=== PATIENT | female | born 1985 | race Caucasian/White ===

== ENCOUNTER 2018-09-25 13:41 | Emergency (ER) | payer OTHER, SELFPAY ==
[2018-09-25 13:45] VITALS: BP 151/98; PULSE 90; RESP 16; TEMP 36.6; O2SAT 100; BMI 48.8
--- NOTE | 2018-09-25 13:48 | DI.RAD.S_ITS ---
PROCEDURE: XR TIBIA FIBULA RT 2V INDICATIONS: ankle swelling pain after rolling it TECHNIQUE: 2 views of the tibia and fibula were acquired. COMPARISON: None. FINDINGS: Bones: No fractures or dislocations. No suspicious bony lesions. Soft tissues: No suspicious soft tissue calcifications or masses. IMPRESSION: No acute fracture. No osseous lesion. If symptoms and/or clinical suspicion for pathology persist, further assessment with repeat, or advanced imaging (e.g., CT, MRI, or bone scan) may be helpful for further assessment. Dictated by: Trish Art M.D. on 09/25/2018 at 14:03 Approved by: Trish Art M.D. on 09/25/2018 at 14:03
--- NOTE | 2018-09-25 13:48 | DI.RAD.S_ITS ---
PROCEDURE: XR ANKLE LT MIN 3V INDICATIONS: ankle swelling pain after rolling it TECHNIQUE: 3 views of the ankle were acquired. COMPARISON: None. FINDINGS: Bones: Mildly displaced fracture of the distal tip of the lateral malleolus is present. Ankle mortise is normally aligned. No suspicious bony lesions. Soft tissues: No tibiotalar joint effusion. Achilles tendon appears normal. IMPRESSION: Mildly displaced fracture of distal fibula. Dictated by: Trish Art M.D. on 09/25/2018 at 14:03 Approved by: Trish Art M.D. on 09/25/2018 at 14:04
--- NOTE | 2018-09-25 13:48 | PC.NURSE ---
Pt refused ice at this time. States that it made it hurt more
[2018-09-25] MEDS: HYDROCODONE/ACET 5/325 TABLET 2 TAB PO (15:47)
[2018-09-25] MEDS: ONDANSETRON 4 MG ODT SL (15:48)
--- NOTE | 2018-09-25 15:54 | ED.LOWEXIN ---
HPI - Extremity Injury (Lower) <JASSON Diaz - Last Filed: 09/25/18 18:15> General Chief Complaint: Extremity Injury, Lower Stated Complaint: LEFT ANKLE HURT Time Seen by Provider: 09/25/18 15:31 Source: patient and family Mode of arrival: wheelchair Limitations: no limitations History of Present Illness HPI Narrative: Patient stated that she was stepping off a curb approximately 130 this afternoon and rolled her ankle on her left side. She is a 33-year-old female who presents with her for chief complaint ankle pain. She complains of a popping sensation when she rolled her ankle. She has not taken anything for the pain. She has not applied ice. She has not hurt this ankle before. She states she moves her toes. Pain is localized on the lateral aspect of her left ankle. She denies any other injury. Related Data Previous Rx's Medication Instructions Recorded hydrocodone-acetaminophen [[place]] 2 tab PO Q4-6H PRN #20 tab 09/25/18 ondansetron 4 mg PO TID-QID PRN #14 tab 09/25/18 Allergies Allergy/AdvReac Type Severity Reaction Status Date / Time No Known Drug Allergies Allergy Verified 09/25/18 13:45 Review of Systems <JASSON Diaz - Last Filed: 09/25/18 18:15> Review of Systems GENERAL: Denies chills, fatigue, malaise, fever, sweats. HEENT: Denies sinus pain, ear pain, sore throat, difficulty swallowing, dizziness. RESPIRATORY: Denies dyspnea, cough, wheezing, hemoptysis, sputum. CARDIOVASCULAR: Denies chest pain, palpitations, orthopnea, edema, GASTROINTESTINAL: Denies nausea, vomiting, abdominal pain, diarrhea, constipation, melena. : Denies dysuria, frequency, incontinence, hematuria, urinary retention. MUSCULOSKELETAL: See HPI SKIN: See HPI NEUROLOGIC: Denies weakness, headache, numbness, change in speech, confusion, seizures, incoordination. PSYCHIATRIC: No concerning psychosocial issues. 12 point review of systems is negative except for those stated above Exam <JASSON Diaz - Last Filed: 09/25/18 18:15> Narrative Exam Narrative: GENERAL: This is a well-nourished, well-developed patient, in mild distress. HEAD: Atraumatic. Normocephalic. No temporal or scalp tenderness. EYES: Pupils equal round and reactive. Extraocular motions intact. No scleral icterus. No injection or drainage. ENT: Nose without bleeding, purulent drainage or septal hematoma. Throat without erythema, tonsillar hypertrophy or exudate. Uvula midline. Airway patent. NECK: Trachea midline. No JVD or lymphadenopathy. Supple, nontender, no meningeal signs. CARDIOVASCULAR: Regular rate and rhythm RESPIRATORY: No cough. No increased respiratory effort. EXTREMITIES: General pain to palpation left ankle. Positive pedal pulses left side. Decreased range of motion all beyer left ankle. Capillary refill less than 2 sec left foot. BACK: Nontender without deformity or crepitance. No flank tenderness. NEURO: AOx3. SKIN: Swelling noted left lateral malleolus area of left ankle. No laceration, abrasion noted. Skin is intact. Initial Vital Signs Initial Vital Signs: Vital Signs Temperature 97.8 F 09/25/18 13:45 Pulse Rate 90 09/25/18 13:45 Respiratory Rate 16 09/25/18 13:45 Blood Pressure 151/98 H 09/25/18 13:45 Pulse Oximetry 100 09/25/18 13:45 <Lashon Villavicencio DO - Last Filed: 09/26/18 09:49> Initial Vital Signs Initial Vital Signs: Vital Signs Temperature 97.8 F 09/25/18 13:45 Pulse Rate 90 09/25/18 13:45 Respiratory Rate 16 09/25/18 13:45 Blood Pressure 151/98 H 09/25/18 13:45 Pulse Oximetry 100 09/25/18 13:45 Course <SARAVANAN Diaz - Last Filed: 09/25/18 18:15> Orders Ordered: Discontinued Medications Hydrocodone Bitart/Acetaminophen ([place] 5/325) 2 tab PO NOW ONE Stop: 09/25/18 15:39 Last Admin: 09/25/18 15:47 Dose: 2 tab Ondansetron HCl (Zofran Odt) 4 mg SL NOW ONE Stop: 09/25/18 15:39 Last Admin: 09/25/18 15:48 Dose: 4 mg Vital Signs - 8 hr 09/25/18 13:45 09/25/18 16:55 Temperature 97.8 F Pulse Rate 90 92 H Respiratory Rate 16 16 Blood Pressure 151/98 H Blood Pressure [Left Arm] 148/86 H Pulse Oximetry 100 98 <DO Hilda Sharma Last Filed: 09/26/18 09:49> Orders Ordered: Discontinued Medications Hydrocodone Bitart/Acetaminophen ([place] 5/325) 2 tab PO NOW ONE Stop: 09/25/18 15:39 Last Admin: 09/25/18 15:47 Dose: 2 tab Ondansetron HCl (Zofran Odt) 4 mg SL NOW ONE Stop: 09/25/18 15:39 Last Admin: 09/25/18 15:48 Dose: 4 mg Vital Signs - 8 hr 09/25/18 13:45 09/25/18 16:55 Temperature 97.8 F Pulse Rate 90 92 H Respiratory Rate 16 16 Blood Pressure 151/98 H Blood Pressure [Left Arm] 148/86 H Pulse Oximetry 100 98 MDM - Extremity Injury (Lower) <JASSON Diaz - Last Filed: 09/25/18 18:15> Imaging Data ankle xray : Radiologist's impression: [address] [address] XRay Report Signed Patient: MEENU CASTILLO EMR#: [id number] : 1985Acct:[id number] Age/Sex: 33 / FDate of Service: 09/25/18 Loc: ED Accession Number: [id number] Procedure: XR ankle LT min 3V Ordering Provider: Lashon Villavicencio D.O. PROCEDURE: XR ANKLE LT MIN 3V INDICATIONS: ankle swelling pain after rolling it TECHNIQUE: 3 views of the ankle were acquired. COMPARISON: None. FINDINGS: Bones: Mildly displaced fracture of the distal tip of the lateral malleolus is present. Ankle mortise is normally aligned. No suspicious bony lesions. Soft tissues: No tibiotalar joint effusion. Achilles tendon appears normal. IMPRESSION: Mildly displaced fracture of distal fibula. Dictated by: Trish Art M.D. on 09/25/2018 at 14:03 Approved by: Trish Art M.D. on 09/25/2018 at 14:04 tibfib xray : Radiologist's impression: [address] [address] XRay Report Signed Patient: MEENU CASTILLO EMR#: [id number] : 1985Acct:[id number] Age/Sex: 33 / FDate of Service: 09/25/18 Loc: ED Accession Number: [id number] Procedure: XR tibia fibula LT 2V Ordering Provider: Lashon Villavicencio D.O. PROCEDURE: XR TIBIA FIBULA RT 2V INDICATIONS: ankle swelling pain after rolling it TECHNIQUE: 2 views of the tibia and fibula were acquired. COMPARISON: None. FINDINGS: Bones: No fractures or dislocations. No suspicious bony lesions. Soft tissues: No suspicious soft tissue calcifications or masses. IMPRESSION: No acute fracture. No osseous lesion. If symptoms and/or clinical suspicion for pathology persist, further assessment with repeat, or advanced imaging (e.g., CT, MRI, or bone scan) may be helpful for further assessment. Dictated by: Trish Art M.D. on 09/25/2018 at 14:03 Approved by: Trish Art M.D. on 09/25/2018 at 14:03 [facility] Narrative Medical decision making narrative: Patient is a 33-year-old female who presents with a chief complaint of ankle pain after rolling her ankle. She was found have a mildly displaced distal fibula fracture. She has no vascular intact, positive pedal pulses. She was placed in a walking boot and given crutches for weight-bearing as tolerated. We discussed at length follow-up with Orthopedics. We discussed rest ice compression elevation as well as monitoring the circulation of her foot. She was instructed come back to the emergency department for any acute concerns. She is given prescriptions for pain and nausea. She had no questions or concerns upon discharge. Discharge Plan Departure Patient Disposition: Home Clinical Impression: Fractured fibula Discharge Date/Time: 09/25/18 17:04 Interventions: ED Discharge Assessment Last Done: 09/25/18 17:04 Instructions: How to Use Crutches, DI for Ankle Fracture, How To Perform RICE (Rest, Ice, Compress, Elevate), How to Take Care of Your Splint Activity Restrictions/Additional Instructions: You have a mildly displaced fracture of the bottom of your fibula. Please weight bear as tolerated with crutches and walking boot. Please follow-up with orthopedics. Please use rest ice compression elevation as well as pain medication as needed. I am giving a prescription for pain medicine. This can be sedating or constipating. Please do not take it and drive or combine with alcohol. I am giving a nausea medication in case the pain medication makes you nauseous. Please monitor circulation of your foot and come back to the emergency department if needed. Prescriptions: New hydrocodone-acetaminophen [[place]] 5-325 mg tablet 2 tab PO Q4-6H PRN (Reason: pain) Qty: 20 RF: 0 ondansetron 4 mg tablet,disintegrating 4 mg PO TID-QID PRN (Reason: nausea and vomiting) Qty: 14 RF: 0 Referrals: [facility] [Provider Group] [facility] [Outside] [facility] [Outside] <Lashon Villavicencio DO - Last Filed: 09/26/18 09:49> Cosign ED Attending Alexia Attestation: I was immediately available in the department for consultation. Documentation has been reviewed. I agree with assessment and plan. All
--- NOTE | 2018-09-25 15:57 | ED_ITS ---
HPI - Extremity Injury (Lower) <JASSON Diaz - Last Filed: 09/25/18 18:15> General Chief Complaint: Extremity Injury, Lower Stated Complaint: LEFT ANKLE HURT Time Seen by Provider: 09/25/18 15:31 Source: patient and family Mode of arrival: wheelchair Limitations: no limitations History of Present Illness HPI Narrative: Patient stated that she was stepping off a curb approximately 130 this afternoon and rolled her ankle on her left side. She is a 33-year-old female who presents with her for chief complaint ankle pain. She complains of a popping sensation when she rolled her ankle. She has not taken anything for the pain. She has not applied ice. She has not hurt this ankle before. She states she moves her toes. Pain is localized on the lateral aspect of her left ankle. She denies any other injury. Related Data Previous Rx's Medication Instructions Recorded hydrocodone-acetaminophen [[place]] 2 tab PO Q4-6H PRN #20 tab 09/25/18 ondansetron 4 mg PO TID-QID PRN #14 tab 09/25/18 Allergies Allergy/AdvReac Type Severity Reaction Status Date / Time No Known Drug Allergies Allergy Verified 09/25/18 13:45 Review of Systems <JASSON Diaz - Last Filed: 09/25/18 18:15> Review of Systems GENERAL: Denies chills, fatigue, malaise, fever, sweats. HEENT: Denies sinus pain, ear pain, sore throat, difficulty swallowing, dizziness. RESPIRATORY: Denies dyspnea, cough, wheezing, hemoptysis, sputum. CARDIOVASCULAR: Denies chest pain, palpitations, orthopnea, edema, GASTROINTESTINAL: Denies nausea, vomiting, abdominal pain, diarrhea, constipation, melena. : Denies dysuria, frequency, incontinence, hematuria, urinary retention. MUSCULOSKELETAL: See HPI SKIN: See HPI NEUROLOGIC: Denies weakness, headache, numbness, change in speech, confusion, seizures, incoordination. PSYCHIATRIC: No concerning psychosocial issues. 12 point review of systems is negative except for those stated above Exam <JASSON Diaz - Last Filed: 09/25/18 18:15> Narrative Exam Narrative: GENERAL: This is a well-nourished, well-developed patient, in mild distress. HEAD: Atraumatic. Normocephalic. No temporal or scalp tenderness. EYES: Pupils equal round and reactive. Extraocular motions intact. No scleral icterus. No injection or drainage. ENT: Nose without bleeding, purulent drainage or septal hematoma. Throat without erythema, tonsillar hypertrophy or exudate. Uvula midline. Airway patent. NECK: Trachea midline. No JVD or lymphadenopathy. Supple, nontender, no meningeal signs. CARDIOVASCULAR: Regular rate and rhythm RESPIRATORY: No cough. No increased respiratory effort. EXTREMITIES: General pain to palpation left ankle. Positive pedal pulses left side. Decreased range of motion all beyer left ankle. Capillary refill less than 2 sec left foot. BACK: Nontender without deformity or crepitance. No flank tenderness. NEURO: AOx3. SKIN: Swelling noted left lateral malleolus area of left ankle. No laceration , abrasion noted. Skin is intact. Initial Vital Signs Initial Vital Signs: Vital Signs Temperature 97.8 F 09/25/18 13:45 Pulse Rate 90 09/25/18 13:45 Respiratory Rate 16 09/25/18 13:45 Blood Pressure 151/98 H 09/25/18 13:45 Pulse Oximetry 100 09/25/18 13:45 <Lashon Villavicencio DO - Last Filed: 09/26/18 09:49> Initial Vital Signs Initial Vital Signs: Vital Signs Temperature 97.8 F 09/25/18 13:45 Pulse Rate 90 09/25/18 13:45 Respiratory Rate 16 09/25/18 13:45 Blood Pressure 151/98 H 09/25/18 13:45 Pulse Oximetry 100 09/25/18 13:45 Course <SARAVANAN Diaz - Last Filed: 09/25/18 18:15> Orders Ordered: Discontinued Medications Hydrocodone Bitart/Acetaminophen ([place] 5/325) 2 tab PO NOW ONE Stop: 09/25/18 15:39 Last Admin: 09/25/18 15:47 Dose: 2 tab Ondansetron HCl (Zofran Odt) 4 mg SL NOW ONE Stop: 09/25/18 15:39 Last Admin: 09/25/18 15:48 Dose: 4 mg Vital Signs - 8 hr 09/25/18 13:45 09/25/18 16:55 Temperature 97.8 F Pulse Rate 90 92 H Respiratory Rate 16 16 Blood Pressure 151/98 H Blood Pressure [Left Arm] 148/86 H Pulse Oximetry 100 98 <DO Hilda Sharma Last Filed: 09/26/18 09:49> Orders Ordered: Discontinued Medications Hydrocodone Bitart/Acetaminophen ([place] 5/325) 2 tab PO NOW ONE Stop: 09/25/18 15:39 Last Admin: 09/25/18 15:47 Dose: 2 tab Ondansetron HCl (Zofran Odt) 4 mg SL NOW ONE Stop: 09/25/18 15:39 Last Admin: 09/25/18 15:48 Dose: 4 mg Vital Signs - 8 hr 09/25/18 13:45 09/25/18 16:55 Temperature 97.8 F Pulse Rate 90 92 H Respiratory Rate 16 16 Blood Pressure 151/98 H Blood Pressure [Left Arm] 148/86 H Pulse Oximetry 100 98 MDM - Extremity Injury (Lower) <JASSON Diaz - Last Filed: 09/25/18 18:15> Imaging Data ankle xray : Radiologist's impression: [address] [address] XRay Report Signed Patient: MEENU CASTILLO EMR#: [id number] : 1985Acct:[id number] Age/Sex: 33 / FDate of Service: 09/25/18 Loc: ED Accession Number: [id number] Procedure: XR ankle LT min 3V Ordering Provider: Lashon Villavicencio D.O. PROCEDURE: XR ANKLE LT MIN 3V INDICATIONS: ankle swelling pain after rolling it TECHNIQUE: 3 views of the ankle were acquired. COMPARISON: None. FINDINGS: Bones: Mildly displaced fracture of the distal tip of the lateral malleolus is present. Ankle mortise is normally aligned. No suspicious bony lesions. Soft tissues: No tibiotalar joint effusion. Achilles tendon appears normal. IMPRESSION: Mildly displaced fracture of distal fibula. Dictated by: Trish Art M.D. on 09/25/2018 at 14:03 Approved by: Trish Art M.D. on 09/25/2018 at 14:04 tibfib xray : Radiologist's impression: [address] [address] XRay Report Signed Patient: MEENU CASTILLO EMR#: [id number] : 1985Acct:[id number] Age/Sex: 33 / FDate of Service: 09/25/18 Loc: ED Accession Number: [id number] Procedure: XR tibia fibula LT 2V Ordering Provider: Lashon Villavicencio D.O. PROCEDURE: XR TIBIA FIBULA RT 2V INDICATIONS: ankle swelling pain after rolling it TECHNIQUE: 2 views of the tibia and fibula were acquired. COMPARISON: None. FINDINGS: Bones: No fractures or dislocations. No suspicious bony lesions. Soft tissues: No suspicious soft tissue calcifications or masses. IMPRESSION: No acute fracture. No osseous lesion. If symptoms and/or clinical suspicion for pathology persist, further assessment with repeat, or advanced imaging (e.g. , CT, MRI, or bone scan) may be helpful for further assessment. Dictated by: Trish Art M.D. on 09/25/2018 at 14:03 Approved by: Trish Art M.D. on 09/25/2018 at 14:03 [facility] Narrative Medical decision making narrative: Patient is a 33-year-old female who presents with a chief complaint of ankle pain after rolling her ankle. She was found have a mildly displaced distal fibula fracture. She has no vascular intact, positive pedal pulses. She was placed in a walking boot and given crutches for weight-bearing as tolerated. We discussed at length follow-up with Orthopedics. We discussed rest ice compression elevation as well as monitoring the circulation of her foot. She was instructed come back to the emergency department for any acute concerns. She is given prescriptions for pain and nausea. She had no questions or concerns upon discharge. Discharge Plan Departure Patient Disposition: Home Clinical Impression: Fractured fibula Discharge Date/Time: 09/25/18 17:04 Interventions: ED Discharge Assessment Last Done: 09/25/18 17:04 Instructions: How to Use Crutches, DI for Ankle Fracture, How To Perform RICE ( Rest, Ice, Compress, Elevate), How to Take Care of Your Splint Activity Restrictions/Additional Instructions: You have a mildly displaced fracture of the bottom of your fibula. Please weight bear as tolerated with crutches and walking boot. Please follow-up with orthopedics. Please use rest ice compression elevation as well as pain medication as needed. I am giving a prescription for pain medicine. This can be sedating or constipating. Please do not take it and drive or combine with alcohol. I am giving a nausea medication in case the pain medication makes you nauseous. Please monitor circulation of your foot and come back to the emergency department if needed. Prescriptions: New hydrocodone-acetaminophen [[place]] 5-325 mg tablet 2 tab PO Q4-6H PRN (Reason: pain) Qty: 20 RF: 0 ondansetron 4 mg tablet,disintegrating 4 mg PO TID-QID PRN (Reason: nausea and vomiting) Qty: 14 RF: 0 Referrals: [facility] [Provider Group] [facility] [Outside] [facility] [Outside] <Lashon Villavicencio DO - Last Filed: 09/26/18 09:49> Cosign ED Attending Alexia Attestation: I was immediately available in the department for consultation. Documentation has been reviewed. I agree with assessment and plan. All
[2018-09-25 16:55] VITALS: BP 148/86; PULSE 92; RESP 16; O2SAT 98
== END 2018-09-25 17:04 | disposition home or self-care (01) ==
PROVIDERS: Emergency Provider Nurse Practitioner Family
DX: S82.822A Torus fracture of lower end of left fibula, initial encounter for closed fracture (principal); W18.43XA Slipping, tripping and stumbling without falling due to stepping from one level to another, initial encounter
CPT/HCPCS: 29580; 73590; 73610; 99282; 99283

== ENCOUNTER 2019-04-04 09:31 | Emergency (ER) | payer OTHER, SELFPAY ==
[2019-04-04 09:42] VITALS: BP 138/75; PULSE 87; RESP 20; TEMP 36.7; O2SAT 98; BMI 48.8
--- NOTE | 2019-04-04 11:44 | ED.NECK ---
HPI - Neck Pain/Injury <SEJAL Diaz-BC - Last Filed: 04/04/19 14:03> General Chief Complaint: Neck Pain/Injury Stated Complaint: Back and neck pain Time Seen by Provider: 04/04/19 10:41 Source: patient and family Mode of arrival: ambulatory Limitations: no limitations History of Present Illness HPI Narrative: The patient is a 34 year old female nonsmoker presents with her for chief complaint of right-sided neck pain. She has a history of a fibula fracture. She states that she has had ongoing right-sided neck pain for the past several weeks. She was recently seen and treated by her primary care provider for back pain with sciatica. She states that she has pain on the right side of her neck, worse with movement. Since it has radiated up over her scalp and given her headache. She states she took 1 naproxen this morning. She denies any thunderclap sensation, photophobia, phonophobia and nausea or vomiting. Related Data Previous Rx's Medication Instructions Recorded cyclobenzaprine 10 mg PO TID PRN #20 tab 04/04/19 hydrocodone-acetaminophen [Clancy] 1 tab PO Q4-6H PRN #7 tab 04/04/19 lidocaine 1 patch TOP DAILY #15 each 04/04/19 Allergies Allergy/AdvReac Type Severity Reaction Status Date / Time No Known Drug Allergies Allergy Verified 04/04/19 10:03 Review of Systems <Arcelia SEJAL Feliz-BC - Last Filed: 04/04/19 14:03> Review of Systems GENERAL: This is a well-nourished, well-developed patient, in mild distress. HEAD: Atraumatic. Normocephalic. No temporal or scalp tenderness. EYES: Pupils equal round and reactive. Extraocular motions intact. No scleral icterus. No injection or drainage. ENT: Nose without bleeding, purulent drainage or septal hematoma. Throat without erythema, tonsillar hypertrophy or exudate. Uvula midline. Airway patent. NECK: Trachea midline. No JVD or lymphadenopathy. Supple, nontender, no meningeal signs. CARDIOVASCULAR: Regular rate and rhythm without murmurs, gallops, or rubs. RESPIRATORY: Clear to auscultation. Breath sounds equal bilaterally. No wheezes, rales, or rhonchi. GASTROINTESTINAL: Abdomen soft, non-tender, nondistended. No hepato-splenomegaly, or palpable masses. No guarding. EXTREMITIES: No clubbing, cyanosis, or edema. No joint tenderness, effusion, or edema noted. BACK: See HPI NEURO: AOx3. SKIN: No rash or erythema. PFSH <SARAVANAN Diaz - Last Filed: 04/04/19 14:03> Social History Smoking Status: Smoker, status unknown Social History Smoking Status: Smoker, status unknown Exam <SARAVANAN Diaz - Last Filed: 04/04/19 14:03> Narrative Exam Narrative: GENERAL: Obese female no acute distress HEAD: Atraumatic. Normocephalic. No temporal or scalp tenderness. EYES: Pupils equal round and reactive. Extraocular motions intact. No scleral icterus. No injection or drainage. ENT: Nose without bleeding, purulent drainage or septal hematoma. Throat without erythema, tonsillar hypertrophy or exudate. Uvula midline. Airway patent. NECK: Trachea midline. No JVD or lymphadenopathy. Supple, nontender, no meningeal signs. CARDIOVASCULAR: Regular rate and rhythm without murmurs, gallops, or rubs. RESPIRATORY: Clear to auscultation. Breath sounds equal bilaterally. No wheezes, rales, or rhonchi. No cough. No increased respiratory effort. No accessory muscle use. GASTROINTESTINAL: Abdomen soft, non-tender, nondistended. No hepato-splenomegaly, or palpable masses. No guarding. EXTREMITIES: No clubbing, cyanosis, or edema. No joint tenderness, effusion, or edema noted. BACK: Nontender without deformity or crepitance. No flank tenderness. No pain of midline see T or L-spine palpation. Patient has pain to palpation of a right 3rd applied NEURO: AOx3. No gross cranial nerve deficit. Strength is equal upper and lower extremities bilaterally. SKIN: No erythema rash ecchymosis noted on neck or shoulder. Initial Vital Signs Initial Vital Signs: Vital Signs Temperature 98.1 F 04/04/19 09:42 Pulse Rate 87 04/04/19 09:42 Respiratory Rate 20 04/04/19 09:42 Blood Pressure 138/75 04/04/19 09:42 Pulse Oximetry 98 04/04/19 09:42 <DO Hilda Ponce Last Filed: 04/04/19 19:04> Initial Vital Signs Initial Vital Signs: Vital Signs Temperature 98.1 F 04/04/19 09:42 Pulse Rate 87 04/04/19 09:42 Respiratory Rate 20 04/04/19 09:42 Blood Pressure 138/75 04/04/19 09:42 Pulse Oximetry 98 04/04/19 09:42 Course <SARAVANAN Diaz - Last Filed: 04/04/19 14:03> Orders Ordered: Discontinued Medications Cyclobenzaprine HCl (Flexeril) 10 mg PO NOW ONE Stop: 04/04/19 11:43 Last Admin: 04/04/19 11:54 Dose: 10 mg Lidocaine (Lidoderm) 1 each TOP NOW ONE Stop: 04/04/19 11:43 Last Admin: 04/04/19 11:54 Dose: 1 each Vital Signs - 8 hr 04/04/19 13:05 Temperature 98.4 F Pulse Rate 73 Respiratory Rate 17 Blood Pressure [Left Arm] 133/83 Pulse Oximetry 100 <DO Hilda Ponce Last Filed: 04/04/19 19:04> Orders Ordered: Discontinued Medications Cyclobenzaprine HCl (Flexeril) 10 mg PO NOW ONE Stop: 04/04/19 11:43 Last Admin: 04/04/19 11:54 Dose: 10 mg Lidocaine (Lidoderm) 1 each TOP NOW ONE Stop: 04/04/19 11:43 Last Admin: 04/04/19 11:54 Dose: 1 each Vital Signs - 8 hr 04/04/19 13:05 Temperature 98.4 F Pulse Rate 73 Respiratory Rate 17 Blood Pressure [Left Arm] 133/83 Pulse Oximetry 100 MDM - Neck Pain/Injury <SARAVANAN Diaz - Last Filed: 04/04/19 14:03> Lab Data Point of Care Testing Test Results Negative Urine Dip Bedside Urine Glucose Negative Bedside Urine Bilirubin - Negative Bedside Urine Ketone - Negative Urine Specific [place] 1.025 Bedside Urine Occult Blood - Negative Bedside Urine pH 5.5 Bedside Urine Protein - Negative Bedside Urine Urobilinogen - Negative Bedside Urine Nitrite - Negative Bedside Urine Leukocytes - Negative Esterase MDM Narrative Medical decision making narrative: The patient is a 34-year-old female who presents with ongoing neck pain. Her pain is on the right side of her neck along her trapezius and sternocleidomastoid. She has no pain to midline palpation. She has no red flag symptoms of incontinence of bowel, incontinence of bladder saddle anesthesia. She was treated with Flexeril lidocaine patch to the emergency department. She felt much improved after these interventions and requested to go home. I encouraged her to follow up with PCP. Discussed at length coming back to the ER for any acute concerns such as incontinence of bowel, incontinence of bladder groin numbness. I did offer plain films in the emergency department, which the patient declined. No questions or concerns upon discharge <Arcelia Gottlieb DO - Last Filed: 04/04/19 19:04> Lab Data Point of Care Testing Test Results Negative Urine Dip Bedside Urine Glucose Negative Bedside Urine Bilirubin - Negative Bedside Urine Ketone - Negative Urine Specific [place] 1.025 Bedside Urine Occult Blood - Negative Bedside Urine pH 5.5 Bedside Urine Protein - Negative Bedside Urine Urobilinogen - Negative Bedside Urine Nitrite - Negative Bedside Urine Leukocytes - Negative Esterase Discharge Plan Departure Patient Disposition: Home Clinical Impression: Muscle spasm Strain of neck muscle Qualifiers: Encounter type: initial encounter Qualified Code(s): S16.1XXA - Strain of muscle, fascia and tendon at neck level, initial encounter Discharge Date/Time: 04/04/19 13:18 Interventions: ED Discharge Assessment Last Done: 04/04/19 13:18 Instructions: DI for Neck Pain, DI for Muscle Spasm Activity Restrictions/Additional Instructions: I have given you a prescription for muscle relaxers. Neck pain, as well as pain medication. Be aware that this can be constipating and sedating. Please follow up with primary care Provider in the next few days. Please come back to the emergency department for any acute concerns such as incontinence of bowel, incontinence of bladder or numbness in your groin. Please continue taking NSAIDs. Prescriptions: New cyclobenzaprine 10 mg tablet 10 mg PO TID PRN (Reason: muscle spasm) Qty: 20 RF: 0 hydrocodone-acetaminophen [Clancy] 5-325 mg tablet 1 tab PO Q4-6H PRN (Reason: pain) Qty: 7 RF: 0 lidocaine 5 % adhesive patch,medicated 1 patch TOP DAILY Qty: 15 RF: 0 Referrals: Fercho Barnes MD [Primary Care Provider] - <Arcelia Gottlieb DO - Last Filed: 04/04/19 19:04> Cosign ED Attending Cosignature Attestation: I was immediately available in the department for consultation. This documentation has been reviewed and I agree with assessment and plan. Supervised by Arcelia Gottlieb DO
--- NOTE | 2019-04-04 11:48 | ED_ITS ---
HPI - Neck Pain/Injury <SEJAL Diaz-BC - Last Filed: 04/04/19 14:03> General Chief Complaint: Neck Pain/Injury Stated Complaint: Back and neck pain Time Seen by Provider: 04/04/19 10:41 Source: patient and family Mode of arrival: ambulatory Limitations: no limitations History of Present Illness HPI Narrative: The patient is a 34 year old female nonsmoker presents with her for chief complaint of right-sided neck pain. She has a history of a fibula fracture. She states that she has had ongoing right-sided neck pain for the past several weeks. She was recently seen and treated by her primary care provider for back pain with sciatica. She states that she has pain on the right side of her neck, worse with movement. Since it has radiated up over her scalp and given her headache. She states she took 1 naproxen this morning. She denies any thunderclap sensation, photophobia, phonophobia and nausea or vomiting. Related Data Previous Rx's Medication Instructions Recorded cyclobenzaprine 10 mg PO TID PRN #20 tab 04/04/19 hydrocodone-acetaminophen [[place]] 1 tab PO Q4-6H PRN #7 tab 04/04/19 lidocaine 1 patch TOP DAILY #15 each 04/04/19 Allergies Allergy/AdvReac Type Severity Reaction Status Date / Time No Known Drug Allergies Allergy Verified 04/04/19 10:03 Review of Systems <Arcelia SEJAL Feliz-BC - Last Filed: 04/04/19 14:03> Review of Systems GENERAL: This is a well-nourished, well-developed patient, in mild distress. HEAD: Atraumatic. Normocephalic. No temporal or scalp tenderness. EYES: Pupils equal round and reactive. Extraocular motions intact. No scleral icterus. No injection or drainage. ENT: Nose without bleeding, purulent drainage or septal hematoma. Throat without erythema, tonsillar hypertrophy or exudate. Uvula midline. Airway patent. NECK: Trachea midline. No JVD or lymphadenopathy. Supple, nontender, no meningeal signs. CARDIOVASCULAR: Regular rate and rhythm without murmurs, gallops, or rubs. RESPIRATORY: Clear to auscultation. Breath sounds equal bilaterally. No wheezes, rales, or rhonchi. GASTROINTESTINAL: Abdomen soft, non-tender, nondistended. No hepato- splenomegaly, or palpable masses. No guarding. EXTREMITIES: No clubbing, cyanosis, or edema. No joint tenderness, effusion, or edema noted. BACK: See HPI NEURO: AOx3. SKIN: No rash or erythema. PFSH <SARAVANAN Diaz - Last Filed: 04/04/19 14:03> Social History Smoking Status: Smoker, status unknown Social History Smoking Status: Smoker, status unknown Exam <SARAVANAN Diaz - Last Filed: 04/04/19 14:03> Narrative Exam Narrative: GENERAL: Obese female no acute distress HEAD: Atraumatic. Normocephalic. No temporal or scalp tenderness. EYES: Pupils equal round and reactive. Extraocular motions intact. No scleral i cterus. No injection or drainage. ENT: Nose without bleeding, purulent drainage or septal hematoma. Throat without erythema, tonsillar hypertrophy or exudate. Uvula midline. Airway patent. NECK: Trachea midline. No JVD or lymphadenopathy. Supple, nontender, no meningeal signs. CARDIOVASCULAR: Regular rate and rhythm without murmurs, gallops, or rubs. RESPIRATORY: Clear to auscultation. Breath sounds equal bilaterally. No wheezes, rales, or rhonchi. No cough. No increased respiratory effort. No accessory muscle use. GASTROINTESTINAL: Abdomen soft, non-tender, nondistended. No hepato-spleno megaly, or palpable masses. No guarding. EXTREMITIES: No clubbing, cyanosis, or edema. No joint tenderness, effusion, or edema noted. BACK: Nontender without deformity or crepitance. No flank tenderness. No pain of midline see T or L-spine palpation. Patient has pain to palpation of a right 3rd applied NEURO: AOx3. No gross cranial nerve deficit. Strength is equal upper and lower extremities bilaterally. SKIN: No erythema rash ecchymosis noted on neck or shoulder. Initial Vital Signs Initial Vital Signs: Vital Signs Temperature 98.1 F 04/04/19 09:42 Pulse Rate 87 04/04/19 09:42 Respiratory Rate 20 04/04/19 09:42 Blood Pressure 138/75 04/04/19 09:42 Pulse Oximetry 98 04/04/19 09:42 <DO Hilda Ponce Last Filed: 04/04/19 19:04> Initial Vital Signs Initial Vital Signs: Vital Signs Temperature 98.1 F 04/04/19 09:42 Pulse Rate 87 04/04/19 09:42 Respiratory Rate 20 04/04/19 09:42 Blood Pressure 138/75 04/04/19 09:42 Pulse Oximetry 98 04/04/19 09:42 Course <SARAVANAN Diaz - Last Filed: 04/04/19 14:03> Orders Ordered: Discontinued Medications Cyclobenzaprine HCl (Flexeril) 10 mg PO NOW ONE Stop: 04/04/19 11:43 Last Admin: 04/04/19 11:54 Dose: 10 mg Lidocaine (Lidoderm) 1 each TOP NOW ONE Stop: 04/04/19 11:43 Last Admin: 04/04/19 11:54 Dose: 1 each Vital Signs - 8 hr 04/04/19 13:05 Temperature 98.4 F Pulse Rate 73 Respiratory Rate 17 Blood Pressure [Left Arm] 133/83 Pulse Oximetry 100 <Arcelia Gottlieb DO - Last Filed: 04/04/19 19:04> Orders Ordered: Discontinued Medications Cyclobenzaprine HCl (Flexeril) 10 mg PO NOW ONE Stop: 04/04/19 11:43 Last Admin: 04/04/19 11:54 Dose: 10 mg Lidocaine (Lidoderm) 1 each TOP NOW ONE Stop: 04/04/19 11:43 Last Admin: 04/04/19 11:54 Dose: 1 each Vital Signs - 8 hr 04/04/19 13:05 Temperature 98.4 F Pulse Rate 73 Respiratory Rate 17 Blood Pressure [Left Arm] 133/83 Pulse Oximetry 100 MDM - Neck Pain/Injury <SARAVANAN Diaz - Last Filed: 04/04/19 14:03> Lab Data Point of Care Testing Test Results Negative Urine Dip Bedside Urine Glucose Negative Bedside Urine Bilirubin - Negative Bedside Urine Ketone - Negative Urine Specific [place] 1.025 Bedside Urine Occult Blood - Negative Bedside Urine pH 5.5 Bedside Urine Protein - Negative Bedside Urine Urobilinogen - Negative Bedside Urine Nitrite - Negative Bedside Urine Leukocytes - Negative Esterase MDM Narrative Medical decision making narrative: The patient is a 34-year-old female who presents with ongoing neck pain. Her pain is on the right side of her neck along her trapezius and sternocleidomastoid. She has no pain to midline p alpation. She has no red flag symptoms of incontinence of bowel, incontinence of bladder saddle anesthesia. She was treated with Flexeril lidocaine patch to the emergency department. She felt much improved after these interventions and requested to go home. I encouraged her to follow up with PCP. Discussed at length coming back to the ER for any acute concerns such as incontinence of bowel, incontinence of bladder groin numbness. I did offer plain films in the emergency department, which the patient declined. No questions or concerns upon discharge <Arcelia Gottlieb DO - Last Filed: 04/04/19 19:04> Lab Data Point of Care Testing Test Results Negative Urine Dip Bedside Urine Glucose Negative Bedside Urine Bilirubin - Negative Bedside Urine Ketone - Negative Urine Specific [place] 1.025 Bedside Urine Occult Blood - Negative Bedside Urine pH 5.5 Bedside Urine Protein - Negative Bedside Urine Urobilinogen - Negative Bedside Urine Nitrite - Negative Bedside Urine Leukocytes - Negative Esterase Discharge Plan Departure Patient Disposition: Home Clinical Impression: Muscle spasm Strain of neck muscle Qualifiers: Encounter type: initial encounter Qualified Code(s): S16.1XXA - Strain of muscle, fascia and tendon at neck level, initial encounter Discharge Date/Time: 04/04/19 13:18 Interventions: ED Discharge Assessment Last Done: 04/04/19 13:18 Instructions: DI for Neck Pain, DI for Muscle Spasm Activity Restrictions/Additional Instructions: I have given you a prescription for muscle relaxers. Neck pain, as well as pain medication. Be aware that this can be constipating and sedating. Please follow up with primary care Provider in the next few days. Please come back to the emergency department for any acute concerns such as incontinence of bowel, incontinence of bladder or numbness in your groin. Please continue taking NSAIDs. Prescriptions: New cyclobenzaprine 10 mg tablet 10 mg PO TID PRN (Reason: muscle spasm) Qty: 20 RF: 0 hydrocodone-acetaminophen [[place]] 5-325 mg tablet 1 tab PO Q4-6H PRN (Reason: pain) Qty: 7 RF: 0 lidocaine 5 % adhesive patch,medicated 1 patch TOP DAILY Qty: 15 RF: 0 Referrals: Fercho Barnes MD [Primary Care Provider] - <Arcelia Gottlieb DO - Last Filed: 04/04/19 19:04> Cosign ED Attending Cosignature Attestation: I was immediately available in the department for consultation. This documentation has been reviewed and I agree with assessment and plan. Supervised by Arcelia Gottlieb DO
[2019-04-04] MEDS: CYCLOBENZAPRINE 10 MG TABLET PO (11:54)
[2019-04-04] MEDS: LIDOCAINE PATCH 1 EACH ADH..PATCH TOP (11:54)
[2019-04-04 13:05] VITALS: BP 133/83; PULSE 73; RESP 17; TEMP 36.9; O2SAT 100
== END 2019-04-04 13:18 | disposition home or self-care (01) ==
PROVIDERS: Emergency Provider Nurse Practitioner Family; PCP General Practice
DX: S16.1XXA Strain of muscle, fascia and tendon at neck level, initial encounter (principal)
CPT/HCPCS: 81003; 81025; 99282; 99283